=== PATIENT | female | born 1980 | race Two or more races ===

== ENCOUNTER 2022-12-31 09:43 | Emergency (ER) | payer SELFPAY ==
[~2022-12-31] VITALS: Ht 162.6 cm; Wt 74.8 kg
--- NOTE | 2022-12-31 09:50 | NUR ---
TO ER 4 FOR MD HUBBARD
--- NOTE | 2022-12-31 09:53 | NUR ---
PT WALKED INTO ER WITH SISTER C/O EPIGASTRIC PAIN "ON AND OFF FOR FEW DAYS". PT DENIES SOB. BREATHING EVEN AND UNLABORED. VSS. PLACED IN BED AND CONNECTED TO MONITOR. AWAITING MD ORDERS.
--- NOTE | 2022-12-31 09:56 | NUR ---
DR MATUTE AT BEDSIDE FOR EVAL
[2022-12-31] MEDS ORDERED: MAG HYDROX/AL HYDROX/SIMETH 30 ML UDC PO ONE (10:00)
[2022-12-31] MEDS ORDERED: MAG HYDROX/AL HYDROX/SIMETH 30 ML UDC ONE (10:05)
--- NOTE | 2022-12-31 10:06 | NUR ---
HOMICIDE SQUAD SERGEANT AT BEDSIDE FOR BLOOD DRAW.
--- NOTE | 2022-12-31 10:09 | NUR ---
URINE SAMPLE COLLECTED AND SENT TO LAB
[2022-12-31 10:26] LABS: BASOPHILS % (AUTO) 0.4 % (0.0-2.0); EOSINOPHILS % (AUTO) 0.5 % (0.0-6.0); HEMATOCRIT 34 % (33-45); HEMOGLOBIN 10.3 g/dL (11.5-14.8); LYMPHOCYTES # (AUTO) 1.5 K/uL (0.8-4.8); LYMPHOCYTES % (AUTO) 24.1 % (20.0-44.0); MEAN CORPUSCULAR HGB CONC 31 g/dl (31.0-36.0); MEAN CORPUSCULAR VOLUME 74 fL (82-100); MONOCYTES # (AUTO) 0.2 K/uL (0.1-1.30); MONOCYTES % (AUTO) 3.2 % (2.0-12.0); NEUTROPHILS # (AUTO) 4.5 K/uL (1.8-8.9); NEUTROPHILS % (AUTO) 71.8 % (43.0-81.0); PLATELET COUNT (AUTO) 291 K/uL (150-450); RED BLOOD CELL COUNT(AUTO) 4.56 MIL/uL (4.0-5.2); WHITE BLOOD COUNT (AUTO) 6.3 K/uL (4.3-11.0)
[2022-12-31 10:39] LABS: BILIRUBIN,URINE NEGATIVE (NEGATIVE); COLOR,URINE YELLOW (YELLOW); LEUKOCYTE ESTERASE ,URINE NEGATIVE (NEGATIVE); NITRITE, URINE NEGATIVE (NEGATIVE); PH,URINE 7.5 (5.0-8.0); PROTEIN,URINE NEGATIVE (NEGATIVE); UGLUCOSE NEGATIVE (NEGATIVE); UROBILINOGEN,URINE 0.2 EU/dL (0.2)
[2022-12-31 10:42] LABS: CALCIUM, SERUM 8.8 mg/dL (8.5-10.1); CREATININE 0.8 mg/dL (0.6-1.3)
[2022-12-31 10:55] LABS: ALBUMIN 3.4 g/dL (3.4-5.0); BILIRUBIN,DIRECT 0.1 mg/dL (0.0-0.2); BILIRUBIN,TOTAL 0.5 mg/dL (0.2-1.0); TOTAL PROTEIN, SERUM 7.9 g/dL (6.4-8.2)
[2022-12-31] MEDS ORDERED: IBUP-1957 PO (11:13)
--- NOTE | 2022-12-31 11:22 | NUR ---
Patient discharged to home in stable condition. Written and verbal after care instructions given. Patient verbalizes understanding of instruction.
[2022-12-31 11:28] VITALS: BP 132/77
== END 2022-12-31 11:29 | disposition home or self-care (01) ==
LOC: ER 09:43
DX: K80.20 Calculus of gallbladder without cholecystitis without obstruction (principal)
CPT/HCPCS: 36415; 76705-TC; 80048-TC; 80076-TC; 83690-TC; 84703-TC; 85025-TC